=== PATIENT | male | born 1995 | race Caucasian/White ===

== ENCOUNTER 2021-09-23 20:42 | Emergency (ER) | payer MEDICAID ==
[~2021-09-23] VITALS: Ht 170.2 cm; Wt 75.5 kg
[2021-09-23 21:22] VITALS: BP 130/76
[2021-09-23] MEDS ORDERED: ACETAMINOPHEN EXTRA STRENGTH 500 MG TAB PO ONE (21:35)
--- NOTE | 2021-09-23 22:14 | NUR ---
PT TAKEN TO ER BED 06.
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
--- NOTE | 2021-09-23 23:20 | NUR ---
PT REFUSED TO HAVE LABS DRAWN. CT W/ CONTRAST CANCELED. CT W/ NO CONTRAST ORDERED.
--- NOTE | 2021-09-23 23:56 | NUR ---
PT BACK FROM CT
--- NOTE | 2021-09-24 03:19 | NUR ---
PT SLEEPING IN SUPINE POSTION. ALL VSS. BED LOWERED TO LOWEST POSITION. 1 SIDE RAIL UP. LIGHTS TURNED OFF FOR PT COMFORT.
[2021-09-24] MEDS ORDERED: IBUP-2213 PO (04:52)
[2021-09-24 05:37] VITALS: BP 106/60
--- NOTE | 2021-09-24 05:43 | NUR ---
The patient's care was reviewed and supervised by Tessie Goodman RN.
== END 2021-09-24 05:37 | disposition home or self-care (01) ==
LOC: MED 20:42
DX: S39.91XA Unspecified injury of abdomen, initial encounter (principal); S29.9XXA Unspecified injury of thorax, initial encounter; V98.8XXA Other specified transport accidents, initial encounter; Y93.89 Activity, other specified; Y92.89 Other specified places as the place of occurrence of the external cause; Y99.8 Other external cause status
CPT/HCPCS: 71250; 72128; 72131; 73100; 99285